=== PATIENT | female | born 1980 ===

== ENCOUNTER 2017-04-02 19:17 | Emergency (ER) | payer OTHER ==
[~2017-04-02] VITALS: Ht 154.9 cm; Wt 53.6 kg
[2017-04-02 19:20] VITALS: BP 133/84
[2017-04-02] MEDS ORDERED: TAMIFLU 75MG75 MG PO (19:24)
[2017-04-02] MEDS ORDERED: MICROGESTIN 1.51 TAB PO (19:24)
[2017-04-02 22:20] VITALS: PULSE 105; TEMP 97.6
== END 2017-04-02 22:10 | disposition home or self-care (01) ==
LOC: COL.ER 19:17
DX: J11.1 Influenza due to unidentified influenza virus with other respiratory manifestations (principal); Z98.890 Other specified postprocedural states